=== PATIENT | female | born 1990 | race Caucasian/White ===

== ENCOUNTER 2017-04-25 03:51 | Emergency (ER) | payer BC, OTHER ==
[~2017-04-25] VITALS: Ht 154.9 cm; Wt 39.9 kg
[~2017-04-25 03:51] MED LIST: [UNRECOGNIZED DRUG - OTHER] PO
--- NOTE | 2017-04-25 04:00 | NUR ---
PATIENT WALKED INTO ER C/O N/V X4 WITH DIARRGEA X4 THAT STARTED 2HRS PRIOR TO ARRIVAL. PT IS AWAKE, ALERT, ORIENTED X 4, NO RESP DISTRESS NOTED OR REPORTED UPON ASSESSMENT... MD AT BEDSIDE...
[2017-04-25] MEDS ORDERED: LOPERAMIDE HCL 2 MG CAPSULE PO ONE (04:15)
[2017-04-25] MEDS ORDERED: ONDANSETRON IV *ER 4 MG/2 ML VIAL IV ONE (04:15)
[2017-04-25] MEDS ORDERED: IV NORMAL SALINE 1000 ML BAG IV ONE (04:15)
[2017-04-25 04:26] LABS: *BILIRUBIN,URIN NEGATIVE (NEGATIVE); *BLOOD, URINE Trace-intact (NEGATIVE); *CLARITY,URINE CLEAR (CLEAR); *COLOR,URINE YELLOW (YELLOW); *KETONES,URINE NEGATIVE (NEGATIVE); *PROTEIN,URINE TRACE (NEGATIVE); LEUKOCYTE ESTERASE ,URINE NEGATIVE (NEGATIVE); NITRITE, URINE NEGATIVE (NEGATIVE); PH,URINE 7.5 (5.0-8.0); UGLUCOSE NEGATIVE (NEGATIVE)
[2017-04-25] MEDS ORDERED: LOPERAMIDE HCL 2 MG CAPSULE ONE (04:27)
[2017-04-25] MEDS ORDERED: ONDANSETRON 4 MG/2 ML VIAL ONE ×3 (04:27→04:29)
[2017-04-25 04:29] LABS: WBC,URINE 0-3 /HPF (0-3)
[2017-04-25 04:30] LABS: *URINE HCG, QUAL NEGATIVE (NEGATIVE); BACTERIA,URINE FEW /HPF (NONE SEEN); SQUAMOUS EPITHELIAL CELL,UR MANY /HPF (NONE SEEN)
--- NOTE | 2017-04-25 06:04 | NUR ---
Patient discharged to home in stable conditon. Written and verbal after care instructions given. Patient verbalizes understanding of instructions. Pt walked out of ER unassisted with belongings and family at side...
[2017-04-25 06:05] VITALS: BP 105/62
== END 2017-04-25 06:06 | disposition home or self-care (01) ==
LOC: ER 03:54
DX: R11.2 Nausea with vomiting, unspecified (principal); R19.7 Diarrhea, unspecified
CPT/HCPCS: 81001; 84703; 96361; 96374; 99284; A4663; J2405; J7030

== ENCOUNTER 2017-06-13 00:06 | Emergency (ER) | payer BC ==
[~2017-06-13] VITALS: Ht 154.9 cm; Wt 42.6 kg
--- NOTE | 2017-06-13 00:15 | NUR ---
PATIENT WALKED INTO ER C/O TAILBONE PAIN THAT STARTED 6HRS AGO. PATIENT STATES WAS ACCIDENTLY KICKED ON TAILBONE, PT IS ALERT, ORIENTED X , NO RESP DISTRESS NOTED OR REPORTED UPON ASSESSMENT... MD AT BEDSIDE...
[2017-06-13 01:03] LABS: *URINE HCG, QUAL NEGATIVE (NEGATIVE)
[2017-06-13] MEDS ORDERED: HYDROCODONE/APAP 10-325 MG TABLET PO ONE (02:30)
--- NOTE | 2017-06-13 02:33 | NUR ---
Patient discharged to home in stable conditon. Written and verbal after care instructions given. Patient verbalizes understanding of instructions. pt walked out of ER unassisted with belongings and at side....
[2017-06-13 02:34] VITALS: BP 107/73
[2017-06-13] MEDS ORDERED: HYDROCODONE/APAP 10-325 MG TABLET ONE (02:41)
== END 2017-06-13 02:36 | disposition home or self-care (01) ==
LOC: ER 00:09
DX: S30.0XXA Contusion of lower back and pelvis, initial encounter (principal); W50.1XXA Accidental kick by another person, initial encounter; Y93.89 Activity, other specified; Y92.89 Other specified places as the place of occurrence of the external cause; Y99.8 Other external cause status
CPT/HCPCS: 72220; 84703; A4663

== ENCOUNTER 2020-06-27 20:52 | Emergency (ER) | payer BC ==
[~2020-06-27] VITALS: Ht 154.9 cm; Wt 44.0 kg
--- NOTE | 2020-06-27 21:05 | NUR ---
Dr. Aragon at bedside for MSE.
[2020-06-27] MEDS ORDERED: TETRACAINE HCL 0.5% OPHT DROP 2 ML BOTTLE OP ONE (21:15)
[2020-06-27] MEDS ORDERED: TETRACAINE HCL 0.5% OPHT DROP 2 ML BOTTLE ONE (21:15)
[2020-06-27] MEDS ORDERED: HYDROCODONE/APAP 5-325MG TABLET PO ONE (21:15)
[2020-06-27] MEDS ORDERED: FLUORESCEIN SODIUM 1 MG STRIP OP ONE (21:15)
[2020-06-27] MEDS ORDERED: HYDROCODONE/APAP 5-325MG TABLET ONE (21:16)
[2020-06-27] MEDS ORDERED: FLUORESCEIN SODIUM 1 MG STRIP ONE ×2 (21:16→21:29)
--- NOTE | 2020-06-27 21:47 | NUR ---
Called Dr. Benjamin for opthalmology, left message.
--- NOTE | 2020-06-27 21:49 | NUR ---
Called Dr. Aldana for opthalmology consult, left message.
--- NOTE | 2020-06-27 21:51 | NUR ---
Called Dr. Barahona for Opthalmology consult, left message.
--- NOTE | 2020-06-27 22:23 | NUR ---
Patient discharged to home in stable condition. Written and verbal after care instructions given. Patient verbalizes understanding of instructions. Stressed follow up or return to ER for worsening s/s. Patient out of ER with steady gait, no acute signs of distress, VSS, all belongings taken, Patient to be driven home by via private vehicle.
[2020-06-27 22:24] VITALS: BP 115/75
== END 2020-06-27 22:25 | disposition home or self-care (01) ==
LOC: ER 20:54
DX: S05.01XA Injury of conjunctiva and corneal abrasion without foreign body, right eye, initial encounter (principal); W22.8XXA Striking against or struck by other objects, initial encounter; Y93.89 Activity, other specified; Y92.89 Other specified places as the place of occurrence of the external cause
CPT/HCPCS: A4663

== ENCOUNTER 2021-06-08 23:13 | Emergency (ER) | payer BC ==
[~2021-06-08] VITALS: Ht 154.9 cm; Wt 44.0 kg
[2021-06-08] MEDS ORDERED: CEPH500C2 PO (23:59)
--- NOTE | 2021-06-09 00:01 | NUR ---
Patient discharged to home in stable condition. Written and verbal after care instructions given. Patient verbalizes understanding of instructions. Stressed follow up or return to ER for worsening s/s.
[2021-06-09] MEDS ORDERED: TDAP DIPH,PERTUSS,TET VAC/PF 0.5 ML DISP.SYRIN IM ONE ×2 (00:13)
[2021-06-09 00:28] VITALS: BP 117/68
== END 2021-06-09 00:29 | disposition home or self-care (01) ==
LOC: ER 23:14
DX: S91.312A Laceration without foreign body, left foot, initial encounter (principal); W26.8XXA Contact with other sharp object(s), not elsewhere classified, initial encounter; Y92.481 Parking lot as the place of occurrence of the external cause
CPT/HCPCS: 90715; A4663

== ENCOUNTER 2023-07-12 16:55 | Emergency (ER) | payer BC, OTHER ==
[~2023-07-12] VITALS: Ht 157.5 cm; Wt 44.5 kg
[~2023-07-12 16:55] MED LIST changes: +CEPH500C2 PO
[2023-07-12] MEDS: IV NORMAL SALINE 1000 ML BAG IV ONE (17:15)
[2023-07-12 17:44] LABS: BASOPHILS # (AUTO) 0.1 K/UL (0.0-0.2); BASOPHILS % (AUTO) 0.7 % (0.0-2.0); EOSINOPHILS # (AUTO) 0.1 K/uL (0.0-0.7); EOSINOPHILS % (AUTO) 1.6 % (0.0-7.0); HEMATOCRIT 39.6 % (31.2-41.9); HEMOGLOBIN 12.9 g/dL (10.9-14.3); LYMPHOCYTES # (AUTO) 2.1 K/uL (0.8-4.8); LYMPHOCYTES % (AUTO) 23.8 % (20.5-51.5); MEAN CORPUSCULAR HEMOGLOBIN 29.5 uug (24.7-32.8); MEAN CORPUSCULAR HGB CONC 33 g/dL (32.3-35.6); MEAN CORPUSCULAR VOLUME 90.5 fL (75.5-95.3); MONOCYTES # (AUTO) 0.7 K/uL (0.1-1.30); MONOCYTES % (AUTO) 7.6 % (0.0-11.0); NEUTROPHILS # (AUTO) 5.9 K/uL (1.8-8.9); NEUTROPHILS % (AUTO) 66.3 % (38.5-71.5); PLATELET COUNT (AUTO) 199 K/uL (179-408); RED BLOOD CELL COUNT(AUTO) 4.38 MIL/uL (3.63-4.92); RED CELL DISTRIBUTION WIDTH 13.2 % (12.3-17.7)
[2023-07-12 17:52] LABS: CALCIUM 9.2 mg/dL (8.5-10.1); CREATININE 0.7 mg/dL (0.6-1.3); DIFFERENTIAL COMMENT 1; POTASSIUM 3.9 mmol/L (3.5-5.1)
[2023-07-12 17:54] LABS: *BILIRUBIN,URIN NEGATIVE (NEGATIVE); *BLOOD, URINE NEGATIVE (NEGATIVE); *CLARITY,URINE CLEAR (CLEAR); *COLOR,URINE YELLOW (YELLOW); *KETONES,URINE NEGATIVE (NEGATIVE); *PROTEIN,URINE NEGATIVE (NEGATIVE); *UROBILINOGEN,URINE 0.2 E.U./dl (NORMAL); LEUKOCYTE ESTERASE ,URINE NEGATIVE (NEGATIVE); NITRITE, URINE NEGATIVE (NEGATIVE); PH,URINE 7.5 (5.0-8.0); UGLUCOSE NEGATIVE (NEGATIVE)
[2023-07-12 17:58] LABS: *URINE HCG, QUAL NEGATIVE (NEGATIVE)
[2023-07-12 19:10] VITALS: BP 122/80; TEMP 98; O2SAT 100
== END 2023-07-12 19:10 | disposition home or self-care (01) ==
LOC: ER 16:57
DX: R55 Syncope and collapse (principal); R07.89 Other chest pain; Z79.899 Other long term (current) drug therapy
CPT/HCPCS: 99285; 96360; 71045; 96361; 80048; 81003; 84703; 85025; 36415; 93005; J7040; A4663